=== PATIENT | female | born 1955 | race Hispanic/Latino ===

== ENCOUNTER 2023-05-02 10:30 | Inpatient (IN) | payer OTHER ==
[~2023-05-02] VITALS: Ht 152.4 cm; Wt 53.7 kg
[~2023-05-02 10:30] MED LIST: GABAPENTIN 100 MG CAPSULE PO ONE
[2023-05-02 11:12] LABS: BASOPHILS # (AUTO) 0.04 K/uL (0.00-0.20); BASOPHILS % (AUTO) 0.4 % (0.0-5.0); CREATININE 0.6 mg/dL (0.5-1.5); EOSINOPHILS # (AUTO) 0.05 K/uL (0.00-0.70); EOSINOPHILS % (AUTO) 0.5 % (0.0-8.0); HEMATOCRIT 26.4 % (36-48); IMMATURE GRANULOCYTE ABSOLUTE 0.08 K/uL (0-1); LYMPHOCYTES # (AUTO) 2.4 K/uL (1.0-4.8); LYMPHOCYTES % (AUTO) 22.3 % (21.0-51.0); MEAN CORPUSCULAR HGB CONC 33.7 g/dL (32.0-36.0); MONOCYTES # (AUTO) 0.6 K/uL (0.1-1.0); MONOCYTES % (AUTO) 5.9 % (3.0-13.0); NEUTROPHILS # (AUTO) 7.6 K/uL (1.8-7.7); NEUTROPHILS % (AUTO) 70.2 % (40.0-77.0); PLATELET COUNT (AUTO) 354 K/uL (130-400); POTASSIUM 4.1 mmol/L (3.5-5.1); RED CELL DISTRIBUTION WIDTH 14.1 % (11.0-15.5); WHITE BLOOD COUNT (AUTO) 10.8 K/uL (4.8-10.8)
[2023-05-02 11:18] LABS: ALBUMIN 2.4 g/dL (3.5-5.0); BILIRUBIN,TOTAL 0.2 mg/dL (0.2-1.0); TOTAL PROTEIN, SERUM 7.3 g/dL (6.0-8.3)
[2023-05-02] MEDS ORDERED: 0.9%NACL 1000ML 1,000 ML IV ONE (11:30)
[2023-05-02] MEDS ORDERED: MORPHINE 2 MG SYG IVP ONE (11:30)
[2023-05-02] MEDS ORDERED: VANCOMYCIN 1.25 GM/250 ML BAG 250 ML IV ONE (12:00)
[2023-05-02] MEDS ORDERED: VANCOMYCIN 1G/250ML KIT 250 ML IV SCH (12:30)
[2023-05-02] MEDS ORDERED: VANCOMYCIN PROTOCOL PER PHARMACY IV SCH ×2 (12:30→13:00)
[2023-05-02] MEDS ORDERED: ACETAMINOPHEN 325 MG TAB PO PRN ×2 (12:30)
[2023-05-02] MEDS: 0.9%NACL 1000ML 1,000 ML IV SCH (12:30)
[2023-05-02] MEDS ORDERED: ONDANSETRON 4MG INJ IV PRN (12:30)
[2023-05-02 12:51] LABS: HEMOGLOBIN A1C 8.1 % (4.0-6.0)
[2023-05-02] MEDS: ZOSYN 3.375GM+NS 50ML 50 ML IVPB SCH ×2 (14:39→21:09)
[2023-05-02] MEDS: INSULIN HUMULIN R 100 UNIT/ML 3ML SQ SCH ×2 (16:30→21:11)
[2023-05-02] MEDS: MORPHINE 2 MG SYG IV PRN ×2 (16:52→21:16)
[2023-05-02 17:35] VITALS: O2SAT 98
[2023-05-02 17:50] VITALS: BP 124/61; PULSE 102; RESP 18
[2023-05-02 20:00] VITALS: O2SAT 98
[2023-05-02 20:17] VITALS: BP 151/46; PULSE 90; RESP 19
[2023-05-02] MEDS: FAMOTIDINE 20MG VIAL IV SCH (21:09)
[2023-05-03] VITALS (7 sets, daily range): BP systolic 119–187; BP diastolic 55–78; PULSE 74–110; RESP 15–21; O2SAT 98
[2023-05-03] MEDS ORDERED: GABAPENTIN 100 MG CAPSULE PO ONE (00:30)
[2023-05-03] MEDS: MORPHINE 2 MG SYG IV PRN ×4 (01:32→15:18)
[2023-05-03] MEDS: 0.9%NACL 1000ML 1,000 ML IV SCH (03:11)
[2023-05-03] MEDS: ZOSYN 3.375GM+NS 50ML 50 ML IVPB SCH ×3 (04:59→21:05)
[2023-05-03 05:20] LABS: BASOPHILS # (AUTO) 0.05 K/uL (0.00-0.20); BASOPHILS % (AUTO) 0.5 % (0.0-5.0); EOSINOPHILS # (AUTO) 0.05 K/uL (0.00-0.70); EOSINOPHILS % (AUTO) 0.5 % (0.0-8.0); HEMATOCRIT 27.1 % (36-48); IMMATURE GRANULOCYTE ABSOLUTE 0.07 K/uL (0-1); LYMPHOCYTES # (AUTO) 2.3 K/uL (1.0-4.8); LYMPHOCYTES % (AUTO) 21.8 % (21.0-51.0); MEAN CORPUSCULAR HEMOGLOBIN 26.4 pg (27.0-33.0); MEAN CORPUSCULAR HGB CONC 32.5 g/dL (32.0-36.0); MEAN CORPUSCULAR VOLUME 81.4 fL (79-99); MONOCYTES # (AUTO) 0.6 K/uL (0.1-1.0); NEUTROPHILS # (AUTO) 7.6 K/uL (1.8-7.7); NEUTROPHILS % (AUTO) 70.5 % (40.0-77.0); PLATELET COUNT (AUTO) 372 K/uL (130-400); RED BLOOD CELL COUNT(AUTO) 3.33 MIL/uL (4.00-5.50); RED CELL DISTRIBUTION WIDTH 14.2 % (11.0-15.5); WHITE BLOOD COUNT (AUTO) 10.7 K/uL (4.8-10.8)
[2023-05-03 05:52] LABS: ALBUMIN 2.5 g/dL (3.5-5.0); BILIRUBIN,TOTAL 0.3 mg/dL (0.2-1.0); CREATININE 0.7 mg/dL (0.5-1.5); POTASSIUM 4.9 mmol/L (3.5-5.1); TOTAL PROTEIN, SERUM 7.2 g/dL (6.0-8.3)
[2023-05-03] MEDS: INSULIN HUMULIN R 100 UNIT/ML 3ML SQ SCH ×4 (06:24→21:00)
[2023-05-03] MEDS: FAMOTIDINE 20MG VIAL IV SCH ×2 (09:28→21:05)
[2023-05-03] MEDS: ENOXAPARIN SODIUM 40 MG/0.4 ML SYRINGE SQ SCH (09:29)
[2023-05-03] MEDS: 0.9% NACL 250ML 250 ML IV SCH (12:39)
[2023-05-03] MEDS: VANCOMYCIN 750MG VIAL IVPB SCH (12:39)
[2023-05-04] VITALS (8 sets, daily range): BP systolic 140–171; BP diastolic 40–70; PULSE 59–114; RESP 16–20; O2SAT 100
[2023-05-04] MEDS: 0.9%NACL 1000ML 1,000 ML IV SCH ×2 (03:53→18:33)
[2023-05-04] MEDS: ZOSYN 3.375GM+NS 50ML 50 ML IVPB SCH ×3 (04:26→21:48)
[2023-05-04] MEDS ORDERED: HYDRALAZINE 20MG/ML VIAL IV ONE (04:30)
[2023-05-04] MEDS: INSULIN HUMULIN R 100 UNIT/ML 3ML SQ SCH ×4 (05:33→21:00)
[2023-05-04] MEDS: FAMOTIDINE 20MG VIAL IV SCH ×2 (08:45→21:48)
[2023-05-04] MEDS: ENOXAPARIN SODIUM 40 MG/0.4 ML SYRINGE SQ SCH (08:45)
[2023-05-04] MEDS ORDERED: AMLODIPINE 5 MG TAB PO SCH (10:30)
[2023-05-04] MEDS: TRAMADOL HCL 50 MG TABLET PO PRN (11:28)
[2023-05-04] MEDS: LISINOPRIL 40 MG TABLET PO SCH (11:28)
[2023-05-04] MEDS: 0.9% NACL 250ML 250 ML IV SCH (11:40)
[2023-05-04] MEDS: VANCOMYCIN 750MG VIAL IVPB SCH (11:40)
[2023-05-04] MEDS: HYDROMORPHONE 1 MG INJ IVP PRN (20:39)
[2023-05-05] VITALS (7 sets, daily range): BP systolic 126–168; BP diastolic 58–71; PULSE 72–86; RESP 20; O2SAT 99–100
[2023-05-05] MEDS: HYDROMORPHONE 1 MG INJ IVP PRN ×3 (05:19→19:46)
[2023-05-05] MEDS: ZOSYN 3.375GM+NS 50ML 50 ML IVPB SCH ×3 (05:20→19:46)
[2023-05-05] MEDS: INSULIN HUMULIN R 100 UNIT/ML 3ML SQ SCH ×4 (06:45→20:01)
[2023-05-05] MEDS: 0.9%NACL 1000ML 1,000 ML IV SCH ×2 (07:10→19:46)
[2023-05-05] MEDS: ENOXAPARIN SODIUM 40 MG/0.4 ML SYRINGE SQ SCH (09:00)
[2023-05-05] MEDS: LISINOPRIL 40 MG TABLET PO SCH (09:00)
[2023-05-05] MEDS: FAMOTIDINE 20MG VIAL IV SCH ×2 (09:00→19:46)
[2023-05-05] MEDS ORDERED: HYDROCHLOROTHIAZIDE 25 MG TABLET PO SCH (09:30)
[2023-05-05] MEDS: 0.9% NACL 250ML 250 ML IV SCH (12:00)
[2023-05-05] MEDS ORDERED: VANCOMYCIN KIT 1 GM/250 ML IV.KIT IV SCH (12:00)
[2023-05-05] MEDS ORDERED: VANCOMYCIN 1.25 GM/250 ML BAG 250 ML IV ONE (12:00)
[2023-05-05] MEDS: TRAMADOL HCL 50 MG TABLET PO PRN ×2 (13:56→22:09)
[2023-05-05 23:40] LABS: SARS-CoV-2, RNA, NAAT NEGATIVE SARS CoV-2 (NEGATIVE)
[2023-05-06] VITALS (30 sets, daily range): BP systolic 112–184; BP diastolic 35–87; PULSE 62–98; RESP 12–20; O2SAT 100
[2023-05-06] MEDS: ZOSYN 3.375GM+NS 50ML 50 ML IVPB SCH ×3 (04:35→20:21)
[2023-05-06 05:42] LABS: BASOPHILS # (AUTO) 0.07 K/uL (0.00-0.20); BASOPHILS % (AUTO) 0.8 % (0.0-5.0); EOSINOPHILS # (AUTO) 0.13 K/uL (0.00-0.70); EOSINOPHILS % (AUTO) 1.5 % (0.0-8.0); HEMATOCRIT 26.7 % (36-48); IMMATURE GRANULOCYTE ABSOLUTE 0.05 K/uL (0-1); LYMPHOCYTES % (AUTO) 34.3 % (21.0-51.0); MEAN CORPUSCULAR HEMOGLOBIN 26.3 pg (27.0-33.0); MEAN CORPUSCULAR VOLUME 79.7 fL (79-99); MONOCYTES # (AUTO) 0.6 K/uL (0.1-1.0); NEUTROPHILS # (AUTO) 4.8 K/uL (1.8-7.7); NEUTROPHILS % (AUTO) 55.8 % (40.0-77.0); PLATELET COUNT (AUTO) 347 K/uL (130-400); RED BLOOD CELL COUNT(AUTO) 3.35 MIL/uL (4.00-5.50); RED CELL DISTRIBUTION WIDTH 14.6 % (11.0-15.5); WHITE BLOOD COUNT (AUTO) 8.6 K/uL (4.8-10.8)
[2023-05-06] MEDS: INSULIN HUMULIN R 100 UNIT/ML 3ML SQ SCH ×4 (05:50→20:22)
[2023-05-06] MEDS: 0.9%NACL 1000ML 1,000 ML IV SCH ×3 (05:57→22:32)
[2023-05-06 06:20] LABS: CREATININE 0.4 mg/dL (0.5-1.5); MAGNESIUM 1.7 mg/dL (1.80-2.40); PHOSPHORUS 4.3 mg/dL (2.5-4.9); POTASSIUM 3.5 mmol/L (3.5-5.1)
[2023-05-06] MEDS: ENOXAPARIN SODIUM 40 MG/0.4 ML SYRINGE SQ SCH (08:01)
[2023-05-06] MEDS: FAMOTIDINE 20MG VIAL IV SCH ×2 (09:00→20:21)
[2023-05-06] MEDS: AMLODIPINE 5 MG TAB PO SCH ×2 (09:00→13:18)
[2023-05-06] MEDS: LISINOPRIL 40 MG TABLET PO SCH ×2 (09:00→13:18)
[2023-05-06] MEDS ORDERED: SUCCINYLCHOLINE 200MG/10ML SYR ONE (09:40)
[2023-05-06] MEDS ORDERED: LIDOCAINE PF 100MG/5ML (2%) SYRINGE 5ML ONE (09:40)
[2023-05-06] MEDS ORDERED: FENTANYL CITRATE PF 50 MCG/1 ML 2ML VIAL ONE (09:41)
[2023-05-06] MEDS ORDERED: MIDAZOLAM HCL 1 MG/ML 2ML VIAL ONE (09:41)
[2023-05-06] MEDS ORDERED: ROCURONIUM 10MG/1ML SYR 10 MG/ML ML ONE (09:41)
[2023-05-06] MEDS ORDERED: PROPOFOL 10 MG/ML 20ML VIAL IV ONE (09:41)
[2023-05-06] MEDS ORDERED: DEXAMETHASONE SOD PHOSPHATE 10MG/ML 1ML VIAL ONE (09:42)
[2023-05-06] MEDS ORDERED: ONDANSETRON 4MG INJ ONE (09:42)
[2023-05-06] MEDS ORDERED: LIDOCAINE HCL 1% 20 ML VIAL ONE (09:46)
[2023-05-06] MEDS ORDERED: ROPIVACAINE 0.5% 5MG/ML 30ML IJ ONE (09:47)
[2023-05-06] MEDS ORDERED: LIDOCAINE HCL 1% 10 ML VIAL ONE (09:47)
[2023-05-06] MEDS: HYDROMORPHONE 1 MG INJ IVP PRN (09:49)
[2023-05-06] MEDS ORDERED: MAGNESIUM 2GM PREMIX 50ML 50 ML IV ONE (12:35)
[2023-05-06] MEDS: VANCOMYCIN KIT 1 GM/250 ML IV.KIT IV SCH (12:38)
[2023-05-06] MEDS: 0.9% NACL 250ML 250 ML IV SCH (12:38)
[2023-05-06] MEDS ORDERED: MAGNESIUM 2GM PREMIX 50ML 50 ML IV PRN (13:00)
[2023-05-06] MEDS ORDERED: OXYCODONE/ACETAMIN 5/325MG TAB PO ONE (13:00)
[2023-05-06] MEDS ORDERED: POTASSIUM CHLORIDE 10% ELIXIR 20 MEQ/15 ML UDCUP PO PRN (16:00)
[2023-05-06] MEDS ORDERED: POTASSIUM CHLORIDE 20MEQ/100ML 100 ML IV PRN (16:00)
[2023-05-06] MEDS ORDERED: KCL 20 MEQ ERTAB PO PRN (16:00)
[2023-05-06] MEDS ORDERED: POTASSIUM CHLORIDE 10% ELIXIR 20 MEQ/15 ML UDCUP ONE (16:01)
[2023-05-07] MEDS: 0.9%NACL 1000ML 1,000 ML IV SCH ×2 (01:43→12:30)
[2023-05-07] MEDS: HYDROMORPHONE 1 MG INJ IVP PRN (02:05)
[2023-05-07] MEDS: OXYCODONE/ACETAMIN 5/325MG TAB PO PRN ×4 (03:00→21:54)
[2023-05-07 03:18] VITALS: BP 162/58; PULSE 85; RESP 22
[2023-05-07] MEDS: ZOSYN 3.375GM+NS 50ML 50 ML IVPB SCH ×3 (03:59→20:24)
[2023-05-07] MEDS: TRAMADOL HCL 50 MG TABLET PO PRN (04:00)
[2023-05-07] MEDS: INSULIN HUMULIN R 100 UNIT/ML 3ML SQ SCH ×4 (05:57→20:25)
[2023-05-07 06:05] LABS: BASOPHILS # (AUTO) 0.02 K/uL (0.00-0.20); BASOPHILS % (AUTO) 0.2 % (0.0-5.0); EOSINOPHILS # (AUTO) 0.01 K/uL (0.00-0.70); EOSINOPHILS % (AUTO) 0.1 % (0.0-8.0); HEMATOCRIT 25.7 % (36-48); IMMATURE GRANULOCYTE ABSOLUTE 0.07 K/uL (0-1); LYMPHOCYTES # (AUTO) 3.1 K/uL (1.0-4.8); LYMPHOCYTES % (AUTO) 24.5 % (21.0-51.0); MEAN CORPUSCULAR HEMOGLOBIN 26.4 pg (27.0-33.0); MEAN CORPUSCULAR HGB CONC 32.3 g/dL (32.0-36.0); MEAN CORPUSCULAR VOLUME 81.8 fL (79-99); MONOCYTES # (AUTO) 0.9 K/uL (0.1-1.0); MONOCYTES % (AUTO) 6.9 % (3.0-13.0); NEUTROPHILS # (AUTO) 8.7 K/uL (1.8-7.7); NEUTROPHILS % (AUTO) 67.8 % (40.0-77.0); PLATELET COUNT (AUTO) 325 K/uL (130-400); RED BLOOD CELL COUNT(AUTO) 3.14 MIL/uL (4.00-5.50); RED CELL DISTRIBUTION WIDTH 14.8 % (11.0-15.5); WHITE BLOOD COUNT (AUTO) 12.8 K/uL (4.8-10.8)
[2023-05-07 06:25] LABS: CREATININE 0.4 mg/dL (0.5-1.5); MAGNESIUM 2.1 mg/dL (1.80-2.40); POTASSIUM 3.8 mmol/L (3.5-5.1)
[2023-05-07 08:00] VITALS: BP 151/58; PULSE 84; RESP 16
[2023-05-07] MEDS: LISINOPRIL 40 MG TABLET PO SCH (10:14)
[2023-05-07] MEDS: FAMOTIDINE 20MG VIAL IV SCH ×2 (10:14→20:24)
[2023-05-07] MEDS: AMLODIPINE 5 MG TAB PO SCH (10:14)
[2023-05-07] MEDS: ENOXAPARIN SODIUM 40 MG/0.4 ML SYRINGE SQ SCH (10:15)
[2023-05-07] MEDS: VANCOMYCIN KIT 1 GM/250 ML IV.KIT IV SCH (11:46)
[2023-05-07 12:00] VITALS: BP 154/75; PULSE 82; RESP 18
[2023-05-07] MEDS: 0.9% NACL 250ML 250 ML IV SCH (12:04)
[2023-05-07 15:59] VITALS: BP 138/48; PULSE 85; RESP 19
[2023-05-07 20:00] VITALS: BP 114/55; PULSE 80; RESP 18
[2023-05-08] VITALS: BP 127/43; PULSE 80; RESP 19
[2023-05-08] MEDS: 0.9%NACL 1000ML 1,000 ML IV SCH (01:50)
[2023-05-08 04:00] VITALS: BP 147/47; PULSE 78; RESP 18
[2023-05-08] MEDS: ZOSYN 3.375GM+NS 50ML 50 ML IVPB SCH (05:27)
[2023-05-08] MEDS: INSULIN HUMULIN R 100 UNIT/ML 3ML SQ SCH ×3 (05:42→16:30)
[2023-05-08 05:54] LABS: BASOPHILS # (AUTO) 0.06 K/uL (0.00-0.20); BASOPHILS % (AUTO) 0.5 % (0.0-5.0); EOSINOPHILS # (AUTO) 0.03 K/uL (0.00-0.70); EOSINOPHILS % (AUTO) 0.3 % (0.0-8.0); HEMATOCRIT 26.4 % (36-48); IMMATURE GRANULOCYTE ABSOLUTE 0.07 K/uL (0-1); LYMPHOCYTES # (AUTO) 2.9 K/uL (1.0-4.8); LYMPHOCYTES % (AUTO) 25.8 % (21.0-51.0); MEAN CORPUSCULAR HEMOGLOBIN 26.4 pg (27.0-33.0); MEAN CORPUSCULAR HGB CONC 32.2 g/dL (32.0-36.0); MONOCYTES # (AUTO) 0.6 K/uL (0.1-1.0); MONOCYTES % (AUTO) 5.5 % (3.0-13.0); NEUTROPHILS # (AUTO) 7.4 K/uL (1.8-7.7); NEUTROPHILS % (AUTO) 67.3 % (40.0-77.0); PLATELET COUNT (AUTO) 339 K/uL (130-400); RED BLOOD CELL COUNT(AUTO) 3.22 MIL/uL (4.00-5.50); RED CELL DISTRIBUTION WIDTH 15.2 % (11.0-15.5)
[2023-05-08 06:37] LABS: CREATININE 0.4 mg/dL (0.5-1.5); POTASSIUM 3.4 mmol/L (3.5-5.1)
[2023-05-08 08:00] VITALS: BP 158/74; PULSE 86; RESP 19
[2023-05-08] MEDS: LISINOPRIL 40 MG TABLET PO SCH (09:06)
[2023-05-08] MEDS: FAMOTIDINE 20MG VIAL IV SCH (09:06)
[2023-05-08] MEDS: OXYCODONE/ACETAMIN 5/325MG TAB PO PRN (09:06)
[2023-05-08] MEDS: AMLODIPINE 5 MG TAB PO SCH (09:06)
[2023-05-08] MEDS: ENOXAPARIN SODIUM 40 MG/0.4 ML SYRINGE SQ SCH (09:07)
[2023-05-08] MEDS ORDERED: AMLO5TAB4 PO (10:22)
[2023-05-08] MEDS ORDERED: LISI40TA9 PO (10:22)
[2023-05-08 12:00] VITALS: BP 144/53; PULSE 102; RESP 19
[2023-05-08 16:00] VITALS: BP 176/67; PULSE 92; RESP 18
== END 2023-05-08 17:05 | disposition home or self-care (01) | DRG 240 ==
LOC: EDH 10:30 → EDHIP 10:31 → EDBD 10:31 → UNDOADMIN 12:22 → EDHIP 12:22 → 3BH 17:35
PROVIDERS: ADMIT Hospitalist; ATTEND Hospitalist
PROC: 0Y6J0Z1 Detachment at Left Lower Leg, High, Open Approach (ICD-10-PCS; principal; 2023-05-06 09:52)
DX: E11.52 Type 2 diabetes mellitus with diabetic peripheral angiopathy with gangrene (principal); M86.8X7 Other osteomyelitis, ankle and foot; I10 Essential (primary) hypertension; Z20.822 Contact with and (suspected) exposure to COVID-19; D64.9 Anemia, unspecified; E11.69 Type 2 diabetes mellitus with other specified complication; E78.00 Pure hypercholesterolemia, unspecified; Z79.4 Long term (current) use of insulin; Z87.891 Personal history of nicotine dependence; Z89.511 Acquired absence of right leg below knee; Z89.512 Acquired absence of left leg below knee
CPT/HCPCS: 36415; 73630; 73718; 80048; 80053; 80202; 82948; 83036; 83605; 83735; 84100; 84145; 85025; 87040; 87070; 87076; 87635; 93926; 97039; G0378; J0330; J0360; J1100; J1170; J1650; J1815; J2001; J2250; J2270; J2405; J2543; J2704; J2795; J3010; J3370; J3475; J3490; 3370; A4216; A4222; A4223; A4649; A4930; A6223; A6446

== ENCOUNTER 2023-05-20 10:43 | Emergency (ER) | payer OTHER ==
[~2023-05-20] VITALS: Ht 162.6 cm; Wt 64.9 kg
[~2023-05-20 10:43] MED LIST changes: +AMLO5TAB4 PO; -GABAPENTIN 100 MG CAPSULE PO ONE; +LISI40TA9 PO
[2023-05-20] MEDS ORDERED: LACTULOSE 20 GM/30 ML UDCUP PO ONE (11:00)
[2023-05-20] MEDS ORDERED: PEG 3350/NA SULF,BICARB,CL/KCL 4000 ML SOLN ONE (11:47)
[2023-05-20] MEDS ORDERED: PEG 3350/NA SULF,BICARB,CL/KCL 4000 ML SOLN PO ONE (12:00)
[2023-05-20] MEDS ORDERED: ONDANSETRON 4MG INJ ONE (13:04)
[2023-05-20] MEDS ORDERED: BACITRACIN 1 EACH PACKET TP ONE (13:56)
[2023-05-20 14:07] VITALS: BP 150/73; PULSE 89; RESP 18; O2SAT 98
== END 2023-05-20 14:04 | disposition home or self-care (01) ==
LOC: EDH 10:43
DX: K59.00 Constipation, unspecified (principal); I10 Essential (primary) hypertension; E78.00 Pure hypercholesterolemia, unspecified; E11.9 Type 2 diabetes mellitus without complications; Z79.899 Other long term (current) drug therapy; Z98.890 Other specified postprocedural states
CPT/HCPCS: 99284; 96374; 74018; J2405